=== PATIENT | male | born 1955 | race Caucasian/White ===

== ENCOUNTER 2024-06-02 16:55 | Observation (INO) | payer MEDICARE, OTHER ==
[~2024-06-02 16:55] MED LIST: Iopamidol-370 76% 500 ML MDV (1 ML CHARGE) ONE
[2024-06-02 18:02] LABS: %Basophils 1.4 % (0.0-1.0); %Eosinophils 5.9 % (0.0-10.0); %Lymphocytes 33.1 % (21.0-51.0); %Monocytes 8.7 % (0.0-10.0); %Neutrophils 50.6 % (42.0-75.0); Hematocrit 43.5 % (42.0-52.0); Hemoglobin 14.9 g/dL (14.0-18.0); Mean Corpuscular HGB CONC 34.3 g/dL (32.0-36.0); Mean Corpuscular Hemoglobin 29.2 pg (27.0-31.0); Mean Corpuscular Volume 85.3 fL (78.0-98.0); Mean Platelet Volume 9.1 fL (7.4-10.4); Platelet Count 259 10x3/uL (130-400); RBC Distribution Width 12.6 % (11.5-14.5)
[2024-06-02 18:27] LABS: ALT (SGPT) 18 U/L (8-55); AST (SGOT) 19 U/L (5-34); Alkaline Phosphatase 66 U/L (40-110); Anion Gap 14 mmol/L (10-20); BUN (Urea Nitrogen) 25 mg/dL (8.4-25.7); Bilirubin, Total 0.5 mg/dL (0.2-1.2); Calc. Creatinine Clearance 0 mL/min (70-130); Calcium 9.2 mg/dL (7.8-10.44); Carbon Dioxide 21 mmol/L (23-31); Chloride 108 mmol/L (98-107); Estimated GFR 51; Globulin 3.4 g/dL (2.4-3.5); Glucose 107 mg/dL (80-115); Potassium 3.7 mmol/L (3.5-5.1); Protein, Total 7.4 g/dL (5.8-8.1); Sodium 139 mmol/L (136-145)
[2024-06-02 18:31] LABS: Troponin I Less than 0.010 ng/mL (< 0.028)
[2024-06-02 20:54] LABS: Hemoglobin A1c 5.4 % (4.0-6.0)
[2024-06-02 20:56] LABS: Cardiac Risk 4.1 (Less than 4.5)
[2024-06-02] MEDS ORDERED: Aspirin Chewable 81 MG TAB ONE ×2 (21:05→21:07)
[2024-06-02 23:11] VITALS: BMI 28.2
[2024-06-02] MEDS ORDERED: Atorvastatin Calcium 40 MG TAB ONE (23:22)
[2024-06-02] MEDS: Atorvastatin Calcium 40 MG TAB PO SCH (23:29)
[2024-06-03 03:41] LABS: #Basophils 0.09 10x3/uL (0.0-0.2); %Basophils 1.3 % (0.0-1.0); %Eosinophils 6.3 % (0.0-10.0); %Lymphocytes 30.3 % (21.0-51.0); %Monocytes 9.1 % (0.0-10.0); %Neutrophils 52.7 % (42.0-75.0); Hematocrit 41.5 % (42.0-52.0); Hemoglobin 14.2 g/dL (14.0-18.0); Mean Corpuscular HGB CONC 34.2 g/dL (32.0-36.0); Mean Corpuscular Hemoglobin 29.8 pg (27.0-31.0); Platelet Count 238 10x3/uL (130-400); RBC Distribution Width 12.4 % (11.5-14.5); Red Blood Cell (RBC) Count 4.77 mill/uL (4.70-6.10)
[2024-06-03 04:16] LABS: Anion Gap 12 mmol/L (10-20); BUN (Urea Nitrogen) 22 mg/dL (8.4-25.7); Calc. Creatinine Clearance 80 mL/min (70-130); Calcium 8.5 mg/dL (7.8-10.44); Carbon Dioxide 22 mmol/L (23-31); Chloride 107 mmol/L (98-107); Estimated GFR 63; Glucose 92 mg/dL (80-115); Potassium 3.5 mmol/L (3.5-5.1); Sodium 137 mmol/L (136-145)
[2024-06-03] MEDS ORDERED: Aspirin Chewable 81 MG TAB ONE ×2 (09:28)
[2024-06-03] MEDS ORDERED: Enoxaparin 40 MG (0.4 mL) SYRINGE ONE (09:28)
[2024-06-03] MEDS: Aspirin 81 mg Enteric Coated Tablet PO SCH (10:25)
[2024-06-03] MEDS: Enoxaparin 40 MG (0.4 mL) SYRINGE SC SCH (10:25)
[2024-06-03] MEDS: Pantoprazole DR 40 MG TAB PO SCH (10:26)
[2024-06-03 12:24] VITALS: BP 148/89; TEMP 98.4
== END 2024-06-03 13:16 | disposition home or self-care (01) ==
LOC: ERS 16:55 → ERHOLD 20:10
PROVIDERS: ADMIT Emergency Medicine; ATTEND Emergency Medicine
DX: R20.0 Anesthesia of skin (principal); R00.1 Bradycardia, unspecified; R03.0 Elevated blood-pressure reading, without diagnosis of hypertension; I44.0 Atrioventricular block, first degree; I45.10 Unspecified right bundle-branch block; Z86.73 Personal history of transient ischemic attack (TIA), and cerebral infarction without residual deficits; Z91.012 Allergy to eggs; Z79.82 Long term (current) use of aspirin; Z79.51 Long term (current) use of inhaled steroids; Z79.899 Other long term (current) drug therapy
CPT/HCPCS: 70496; 70498; 70551; 80048; 80061; 83036; 83735; 84484; 85025; 93005; 99285; G0378 ×2; J1650; Q9967; 36415; 80053; 84443